=== PATIENT | female | born 1995 | race Caucasian/White ===

== ENCOUNTER → 2019-06-14 | Outpatient (CLI) | payer BC | END | disposition home or self-care (01) | LOC: US 11:00 | DX: Z34.02 Encounter for supervision of normal first pregnancy, second trimester (principal); Z3A.24 24 weeks gestation of pregnancy ==

== ENCOUNTER → 2019-07-12 | Outpatient (CLI) | payer BC | END | disposition home or self-care (01) | LOC: LAB 10:16 | DX: R73.09 Other abnormal glucose (principal) ==